=== PATIENT | male | born 1945 | race Caucasian/White ===

== ENCOUNTER 2023-05-15 11:29 | Outpatient (CLI) | payer MEDICARE, BC, SELFPAY | END 2023-05-15 11:30 | disposition home or self-care (01) | LOC: NFLDREF 05-16 20:06 | PROVIDERS: PCP Family Medicine; Referring Provider Family Medicine; Visit Provider Family Medicine | DX: R35.0 Frequency of micturition (principal) | CPT/HCPCS: 81015; 87086 ==

== ENCOUNTER 2023-10-28 12:43 | Outpatient (CLI) | payer MEDICARE, BC, SELFPAY | END 2023-10-28 12:44 | disposition home or self-care (01) | PROVIDERS: PCP Family Medicine; Visit Provider Family Medicine | DX: R53.83 Other fatigue (principal); E78.2 Mixed hyperlipidemia; Z13.21 Encounter for screening for nutritional disorder; N18.9 Chronic kidney disease, unspecified; K58.9 Irritable bowel syndrome, unspecified | CPT/HCPCS: 80048; 80061; 82306; 82607; 84630; 85025 ==

== ENCOUNTER 2024-09-28 14:01 | Outpatient (CLI) | payer MEDICARE, BC, SELFPAY | END 2024-09-28 14:02 | disposition home or self-care (01) | PROVIDERS: PCP Family Medicine; Visit Provider Family Medicine | DX: Z00.00 Encounter for general adult medical examination without abnormal findings (principal); E78.5 Hyperlipidemia, unspecified; N18.9 Chronic kidney disease, unspecified; R53.83 Other fatigue | CPT/HCPCS: 80048; 80061; 85025; 87086 ==

== ENCOUNTER 2025-03-10 17:30 | Outpatient (CLI) | payer MEDICARE, BC, SELFPAY | END 2025-03-10 17:31 | disposition home or self-care (01) | LOC: FBOREF 17:31 | PROVIDERS: PCP Family Medicine; Visit Provider Family Medicine | DX: R79.89 Other specified abnormal findings of blood chemistry (principal); E29.1 Testicular hypofunction | CPT/HCPCS: 82670; 84403 ==